=== PATIENT | male | born 2000 | race Caucasian/White ===

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

== ENCOUNTER 2024-04-09 20:53 | Outpatient (REF) | payer SELFPAY ==
[2024-04-13 12:07] LABS: Chlamydia Result Negative (Negative); GC Result Negative (Negative)
== END 2024-04-09 20:54 | disposition home or self-care (01) ==
LOC: LBN 20:53
PROVIDERS: PCP Nurse Practitioner Family; Visit Provider Nurse Practitioner Family
DX: R10.32 Left lower quadrant pain (principal)
CPT/HCPCS: 87491; 87591

== ENCOUNTER 2024-09-21 15:08 | Outpatient (REF) | payer MEDICAID, SELFPAY | END 2024-09-21 15:09 | disposition home or self-care (01) | LOC: LBN 15:08 | PROVIDERS: PCP Nurse Practitioner Family; Visit Provider Nurse Practitioner Family | DX: B83.9 Helminthiasis, unspecified (principal); R19.5 Other fecal abnormalities | CPT/HCPCS: 87177 ==